=== PATIENT | male | born 1995 | race Caucasian/White ===

== ENCOUNTER 2016-09-30 15:42 | Emergency (ER) | payer MEDICAID, OTHER ==
[2016-09-30 16:29] VITALS: BP 144/87
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
--- NOTE | 2016-10-02 11:35 | CR ---
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 This is demonstrated on the prior MRI exam from 2010. There is normal alignment. There is no fracture or joint effusion. Impression: 1. No acute findings.
== END 2016-09-30 17:44 | disposition home or self-care (01) ==
LOC: JP.ED 15:42
DX: S86.911A Strain of unspecified muscle(s) and tendon(s) at lower leg level, right leg, initial encounter (principal); V59.49XA Driver of pick-up truck or van injured in collision with other motor vehicles in traffic accident, initial encounter
CPT/HCPCS: 73564-26-RT; 73564-RT; 99284